=== PATIENT | female | born 1955 | race African-American/Black ===

== ENCOUNTER 2019-01-05 15:02 | Inpatient (IN) | payer OTHER ==
[~2019-01-05] VITALS: Ht 170.2 cm; Wt 71.2 kg
[~2019-01-05 15:02] MED LIST: COREG25 MG PO; COZAAR 25 MG TA25 M1 PO; SENNA-DOCUSATE1 EAC1 PO; VERAPAMIL E.R240 M1 PO
[2019-01-05 15:03] VITALS: BP 170/104
[2019-01-05 18:05] LABS: HEMOGLOBIN 6.5 gm/dL (12.0-15.0); MCH 24.6 pg (26.0-34.0); MCHC 31.2 g/dL (28.0-37.0); PLATELET COUNT 203 thou/uL (150-400); RBC 2.66 mil/uL (4.20-5.00); WBC 6.9 thou/uL (4.0-11.0)
[2019-01-05 18:28] LABS: CALCIUM 9.3 mg/dL (8.5-10.1); CREATININE 11.5 mg/dL (0.6-1.0)
[2019-01-05 18:32] LABS: ABSOLUTE NEUTROPHILS 4.1 thou/uL (1.4-8.2)
[2019-01-05 18:33] LABS: ANISOCYTOSIS 1+; SCHISTOCYTES OCCASIONAL; TARGET CELLS OCCASIONAL
[2019-01-05 18:34] LABS: ALBUMIN 3.3 g/dL (3.4-5.0); MAGNESIUM 1.7 mg/dL (1.8-2.4); TOTAL BILIRUBIN 0.5 mg/dL (<0.1-1.0); TOTAL PROTEIN 7.5 g/dL (6.4-8.2)
[2019-01-05 18:35] LABS: BE(vivo) 0.1 mmol/L (-2 to +3); HCO3 23.5 mmol/L (22.0-26.0); PCO2 VENOUS 32.9 mmHg (41.0-51.0); PO2 VENOUS 65.1 mmHg (35.0-45.0)
[2019-01-05 22:27] VITALS: BP 126/75
[2019-01-05 23:29] VITALS: BP 179/109
[2019-01-06] VITALS (60 sets, daily range): BP systolic 137–194; BP diastolic 74–116
--- NOTE | 2019-01-06 | NUR ---
ADMIT: Pt here at 2350. Restless, sedated, not cooperative with cares, in soft wrist bilateral and right ankle soft restraint.
--- NOTE | 2019-01-06 00:27 | NUR ---
RESTRAINTS decreased to SWB and LUIS ALBERTO after pt settled in bed at 2355. Pt calm now, sedated still, monitor sinus tachycardia with rate 107-115, room air O2 sat 93%. Spoke with David Haney NP. Orders recieved. Ok given to call nephrology service in a.m. with consult. Will hold on blood transfusion till talk with renal in a.m.
[2019-01-06 01:18] LABS: CALCIUM 9.1 mg/dL (8.5-10.1); CREATININE 11.9 mg/dL (0.6-1.0); MAGNESIUM 1.8 mg/dL (1.8-2.4)
[2019-01-06] MEDS ORDERED: VIMPAT100 MG PO (02:51)
[2019-01-06] MEDS ORDERED: LIPITOR40 MG PO (02:51)
[2019-01-06] MEDS ORDERED: TRAMADOL 50 MG50 MG PO ×2 (02:54→02:55)
[2019-01-06] MEDS ORDERED: TYLENOL325 MG PO (02:56)
[2019-01-06] MEDS ORDERED: BRIVIACT100 MG PO (05:43)
[2019-01-06] MEDS ORDERED: CARVEDILOL3.125 MG PO (05:43)
[2019-01-06 06:09] LABS: % SATURATION 9 % (20-39); IRON 23 ug/dL (50-170); TIBC 258 ug/dL (250-450)
--- NOTE | 2019-01-06 06:11 | NUR ---
Spoke with Dr. Mtz regarding renal consult. He will see pt this a.m. Pt remains sedated, but arouses to tactile stimuli. Monitor sinus rhythm, sinus tach, rates 90's to 107. Remains in soft wrist restraints bilaterally. On 2 L nasal canula, sat 100%.
[2019-01-06 06:26] LABS: FOLIC ACID 6.8 ng/mL (8.6-58.9)
--- NOTE | 2019-01-06 09:59 | NUR ---
VASCULAR ACCESS ATTEMPTED PIV ON R ARM VESSELS VERY SMALL MANY NONCOMPRESSIBLE PIV UNSUCCESSFUL. MIDLINE ORDERED BUT PT IS DIALYSIS PT SO MIDLINE IS CONTRAINDICATED. DISCUSSED WITH ALICIA LINARES TO NOTIFY DR CHACON TO RECOMMEND EITHER TICC OR IJ BY IR. PT IS UNCOOPERATIVE AND DYSPNIC AT PRESENT SO IJ BY VASCULAR ACCESS TEAM IS UNSAFE.
--- NOTE | 2019-01-06 16:39 | NUR ---
Met with patient who was groggy. She admits from [facility] for [facility]. [facility] per [facility] nursing facility. She left AMA and return to [facility] with AMS. Nursing facility reports she left AMA and spouse brought her back to facility facility unaware of her dc/return. She returned with no orders. Patient is fairly new hemodyalsis patient. Spouse reports she dializes at a facility [facility]. Sp with [facility], patient does not dialize at those clinics. Sp with [facility] who report not a patient at their clinic, possibly private clinic. Sp with spouse cont plan to return to [facility], she admitted to facility in for skilled care. Cont plan for skilled at in.
--- NOTE | 2019-01-06 17:00 | NUR ---
[facility] SPOKE WITH CARMELO IN ADM SHE RECEIVED UPDATE.
--- NOTE | 2019-01-06 19:15 | NUR ---
DROWSY/LETHARGIC. AIRWAY REMAINED PATENT. DIALYSIS REMOVED 2,500CC. RESTRAINTS REMOVED AFTER DIALYSIS. PO BP MED HELD SINCE PT TOO SLEEPY TO TAKE PO. NOW PT AWAKE, ALERT TO PERSON, PULLING LEADS OFF.
[2019-01-07] VITALS (21 sets, daily range): BP systolic 134–226; BP diastolic 72–96
[2019-01-07 06:12] LABS: HEMOGLOBIN 6.6 gm/dL (12.0-15.0); RDW 16.8 % (10.5-14.5)
[2019-01-07 06:16] LABS: HEMATOCRIT 21.1 % (37.0-47.0); MCHC 31.2 g/dL (28.0-37.0); MCV 80.3 fL (80.0-100.0); RBC 2.63 mil/uL (4.20-5.00); WBC 4.9 thou/uL (4.0-11.0)
[2019-01-07 06:37] LABS: ALBUMIN 2.8 g/dL (3.4-5.0); CALCIUM 8.8 mg/dL (8.5-10.1); PHOSPHORUS 3.9 mg/dL (2.5-4.9); POTASSIUM 3.9 mmol/L (3.5-5.1)
[2019-01-07 06:38] LABS: CREATININE 6.2 mg/dL (0.6-1.0)
--- NOTE | 2019-01-07 08:03 | NUR ---
PATIENT ALERT AND ORIENTED TO SELF AND SITUATION, NO COMPLAINTS OF PAIN. ON ROOM AIR. LEFT UPPER ARM DIALYSIS FISTULA INTACT. BATH COMPLETED INDEPENDENLTY, PATIENT UP WITH STANDBY ASSISTANCE, VERBALIZED UNDERSTANDING OF CALLING BEFORE GETTING OUT OF BED. PATIENT INTERMITTENTLY PULLED OF TELEMETRY STICKERS AND BLOOD PRESSURE CUFF, EDUCATED ON THE IMPORTANCE TO CLOSELY MONITOR HER. SPOKE TO DAUGHTER AND GAVE UPDATE. PATIENT RESTLESS OVER NIGHT WITH LITTLE SLEEP. NO SIGNS OF ACUTE DISTRESS NOTED AT THIS TIME. WILL CONTINUE TO MONITOR.
--- NOTE | 2019-01-07 09:17 | HC ---
[facility] [place] [address] CONSULTATION Name: MICA CASTELLANO V Room #: 247-P ADM IN M.R.#: [id number] Admission: 01/05/19 Attend Phys: Neptali Martin Discharge: Date of : 53 Report #: [id number] THIS REPORT FOR: //name// CC: [facility] physician/PCP Dillon Julio REASON FOR PRESENTATION: Missing dialysis, abnormal mental status. HISTORY OF PRESENT ILLNESS: This is obtained from the medical records, as the patient is not able to provide me with a history due to her mental status changes. She is a 63-year-old who has been having some issues with acute mental status changes in her [facility]. She was admitted to [facility] for few days and was discharged back to her facility; however, her facility refused to take her back because of her aggressive behavior. I have taken care of this patient back in September when she presented with peritonitis. She was treated accordingly; however, she ended up having her PD catheter removed because of noncompliance. She follows with Dr. Matson in [facility]. She did not dialyze since last Saturday. She was admitted to be evaluated, and I am consulted to manage her end-stage renal disease. When I talked with her dialysis unit back in September of this year, they have informed me that the patient has been extremely noncompliant with her medication. PAST MEDICAL HISTORY: 1. Hypertension. 2. End-stage renal disease. 3. Peritonitis. 4. Kidney cysts. PAST SURGICAL HISTORY: 1. PD catheter removal. 2. Left AV graft. MEDICATIONS: 1. Carvedilol. 2. Verapamil. 3. Losartan. 4. Atorvastatin. FAMILY HISTORY: Unobtainable given the patient's mental status. REVIEW OF SYSTEMS: Completely unobtainable as the patient is currently having mental status issues. PHYSICAL EXAMINATION: VITAL SIGNS: Blood pressure is 170/92. HEAD AND NECK: No jugular venous distention. CHEST: No crackles. [facility] [address] [place] [address] CONSULTATION Name: MICA CASTELLANO V Room #: [address] [place] [address] IN ..#: [id number] Admission: 01/05/19 Attend Phys: Neptali Martin Discharge: Date of : 53 Report #: [id number] CARDIOVASCULAR: No rub. ABDOMEN: Soft, nontender. EXTREMITIES: Lower extremities, no edema. Upper extremities, there is a functioning left AV graft. LABORATORY VALUES: Reviewed. Hemoglobin is 6.5. Sodium is 133, BUN is 38, creatinine is 11.9. IMPRESSION AND PLAN: 1. End-stage renal disease. 2. Noncompliance. 3. Combative behavior. 4. Remote history of peritonitis. 5. Hypertension. 6. We will arrange for the patient to have hemodialysis. 8. Anemia workup. 9. Resume blood pressure medication. <ELECTRONICALLY SIGNED> By: Brenda Bravo MD 01/07/19 0917 [id number] Brenda Bravo MD /paramjit
--- NOTE | 2019-01-07 15:02 | NUR ---
OK FOR DC TODAY PER NEPHROLOGY AND HOSPITALIST. CARMELO AT [facility] CONFIRMS ABLE TO ACCEPT BACK TO SKILLED REHAB TODAY AND W/C VAN [employer] TIME [id number]. RN PROVIDED # FOR REPORT AND UPDATED. RN WILL NOTIFY PT'S DTR BY PHONE AND PT'S SISTER IN ROOM WITH PT AND AGREEABLE TO DC TODAY.
--- NOTE | 2019-01-07 15:05 | NUR ---
PT DISCHARGING TODAY BACK TO [facility] FAXED DC ORDERS/SUMMARY TO FACILITY SPOKE WITH CARMELO IN ADM SHE RECEIVED DC ORDERS AND ARRANGED TRANSPORT BY [facility] FOR [phone]. TRIED TO NOTIFY PT'S ([facility]) BUT HIS VOICEMAIL IS FULL SO NOTIFIED PT'S DTR AND LEFT MSG WITH TIME OF TRANSPORT. NOTIFIED UNIT AND CHART COPY PER US RN TO CALL REPORT TO [phone] AND ASK FOR SANDRA.
--- NOTE | 2019-01-07 15:57 | NUR ---
REPORT RECEIVED AND CARE ASSUMED THIS AM, AWAKE AND ALERT, ORIENTED X3. PLEASANT AND COOPERATIVE. DIALYSIS COMPLETED TODAY THROUGH [facility]. SR ON MONITOR, ONE UNIT OF PRBCS GIVEN BY DIALYSIS NURSE. PATIENT TO BE DISCHARGED BACK TO [facility]. REPORT GIVEN TO MILAGROS RAMOS. WAITING FOR WHEELCHAIR VAN TRANSPORT.
--- NOTE | 2019-01-07 16:17 | HC ---
[facility] [address] [address] CONSULTATION Name: MICA CASTELLANO V Room #: [facility] ADM IN M.R.#: [id number] Admission: 01/05/19 Attend Phys: Neptali Martin Discharge: Date of : 53 Report #: [id number] THIS REPORT FOR: //name// CC: [facility] physician/PCP Neptali Martin DATE OF SERVICE: 01/06/2019 PSYCHIATRIC CONSULTATION CONSULTATION: Primary team attending, Dr. Neptali Martin, consulting ice cream truck driver, Brenda Bravo. Psychiatrist, Wayne Romero DO REASON FOR CONSULTATION: Delirium due to multiple etiologies and agitation. HISTORY OF PRESENT ILLNESS: This is a 63-year-old black female admitted through the Emergency Department yesterday. The patient has a number of medical problems. She is an established patient on hemodialysis. She also had been residing in a nursing facility, was sent out to [facility]. She had a respiratory problem. She was noncooperative. She was sent back to her house briefly and allegedly sent back to our hospital, this was the story, I got from her sister who is present this morning. From the ER records, she had had aggressive behavior, altered mental status. She resides at [facility]. Per daughter, her caretakers there called an ambulance Saturday night because the patient had hypertension, dyspnea, transported to [facility]. She was admitted there Saturday morning last night or this morning, the providers were tried to assess her and she grew combative. She was released from [facility] earlier today. [facility] would not take her back because she has been increasingly aggressive and altered behavior. The patient is on hemodialysis as far as her daughters know, she last received a full treatment 5 days prior to admission, some sort of half treatment 3 days ago. Per caretakers from [facility], the patient deeply dislikes dialysis because caretakers have trouble accessing the fistula without causing her pain. Her daughter reported the patient was seen at [facility] 6 weeks ago for an infection and had multiple seizures the day after being admitted. She was put on seizure medication. Daughters and caretakers report, the patient is typically sassy. Apparently, it is believed she has delirium due to buildup of toxins. No power of district attorney on file for the patient. Her ice cream truck driver is Dr. Matson at [facility]. PAST SURGICAL HISTORY: Tubal ligation 23 years ago, fistula for dialysis, hysterectomy for fibroids. MEDICAL HISTORY: Hypertension. PSYCHIATRIC HISTORY: Extensive street drug use prior to 20 [address] ago[address] [address] CONSULTATION Name: MICA CASTELLANO V Room #: [facility] IN M.R.#: [id number] Admission: 01/05/19 Attend Phys: Neptali Martin Discharge: Date of : 53 Report #: [id number] HOME MEDICATIONS: Coreg 25 mg p.o. b.i.d. with meals, verapamil extended release 80 mg p.o. t.i.d., losartan 50 mg p.o. daily, sennosides-docusate 2 tablets p.o. daily. ALLERGIES: PENICILLIN. SOCIAL HISTORY: No recent tobacco. REVIEW OF SYSTEMS: Not obtainable. LABORATORY DATA: From the Emergency Room, venous blood gas was done and showed the pO2 of 65, pCO2 of 32, carboxyhemoglobin 1.9. Other laboratories, sodium 133, potassium 4.0, chloride 92, bicarbonate 24, anion gap 17, BUN 37, creatinine 11.5, estimated GFR 4, glucose 97, calcium 9.3, phosphorus 5.0, magnesium 1.7, total bilirubin 0.5, AST 20, ALT 12, alkaline phosphatase 58. Albumin is 3.3. White count 6.9, H and H would be 6.5 and 21.0, platelet count 203. Urinalysis was canceled. Additional laboratories from today 01/06/2019, iron 23, TIBC 258, percent sat 9 and unsaturated IBC 235. Folate is 6.8. B12 of 531. MRSA PCR screen was negative. PHYSICAL EXAMINATION: VITAL SIGNS: Today, serial blood pressures range from 159/89-140/83 most recently. Additional vital signs most recently to my consultation would be pulse 102, respirations 12, BP 177/102, O2 sat 100%. The patient, I believe, is not taking p.o. nourishment at this time, but I hope that will change. Actually when they see Dr. Martin's diet order, it is n.p.o. except meds and sips of liquids. CURRENT MEDICATIONS IN THE HOSPITAL: Senna-S 2 tabs p.o. daily. Lacosamide, which is Vimpat 100 mg per 50 mL b.i.d. IV piggyback. Coreg 3.125 mg b.i.d. with meals. I added Haldol 0.5 mg IV q. 8 hours for delirium, lorazepam has been discontinued, hydralazine 10 mg q.4 hours IV p.r.n. push. Haloperidol 2.5 mg q hours p.r.n. push, Alteplase 2 mg as directed. The fluids were discontinued, mostly otherwise that was discontinued medications. Limited history available, the patient is a full code, likely maximum high school education level, unknown trauma history and unknown drug use history. PHYSICAL EXAMINATION: This is a well-developed, recumbent in bed in the Intensive Care Unit. MENTAL STATUS EXAMINATION: This is a well-developed, disheveled black female with braided hair. Attention limited. Concentration limited. She was able to squeeze my right hand with directions with prompting stick out her tongue. Thought process linear and limited. Thought content, unable to assess. [facility] [address] [place] [address] CONSULTATION Name: MICA CASTELLANO V Room #: 247-P [facility] IN M.R.#: [id number] Admission: 01/05/19 Attend Phys: Neptali Martin Discharge: Date of : 53 Report #: [id number] Psychomotor retardation. No psychomotor agitation. Denied suicidal intent or plan. Some helplessness, some hopelessness. Denied homicidal behavior. The patient was removed from restraints when I saw her and no suicidal behavior, but she was not able to confirm whether she had suicidal ideations. Memory impaired. Insight limited. Judgment limited. Fund of knowledge well below average. FORMULATION: A 63-year-old black female brought for altered mental status, need for hemodialysis. DIAGNOSES: Delirium due to general medical condition, namely acute on chronic renal failure, fluid overload, electrolyte imbalance. PLAN: At this time, I think the benefits outweigh the risks of Haldol 0.5 mg IV q. 8 hours scheduled with Haldol 2.5-5 mg p.r.n. IV the agiataion , the IV doses are considered twice as potent as PO or IM haloperidol. I would recommend not using Geodon with her, not using benzodiazepines including lorazepam. Continue to treat underlying general medical condition, hope to minimize her strength to help the patient out of bed and then in a chair tomorrow. I would agree that decisions regarding refusing dialysis and whether to go on comfort care should not be entertained until the delirium is passed and the patient can have a discussion with her family and doctors. Time spent on interview, review of records, coordination of care for this patient is approximately 60 minutes. <ELECTRONICALLY SIGNED> By: Wayne Romero DO 01/07/19 1617 [id number] Wayne Romero DO /nt
--- NOTE | 2019-01-07 17:17 | NUR ---
ATTEMPTED TO GIVE FLU VACCINE PRIOR TO DISCHARGE. REQUESTED FROM PHARMACY BUT PATIENT TRANSPORTATION ARRIVED AND PATIENT DISCHARGED BEFORE GETTING FLU VACCINE
[2019-01-08 08:07] LABS: HEPATITIS B SURFACE AG Negative (Negative)
== END 2019-01-07 17:05 | DRG 70 ==
LOC: ER 15:02 → ICU 22:03 → EROBS 22:03 → ICU 23:14
PROVIDERS: Hospitalist; Nurse Practitioner Acute Care; Physician Assistant; ADMIT Hospitalist
PROC: 30233N1 Transfusion of Nonautologous Red Blood Cells into Peripheral Vein, Percutaneous Approach (ICD-10-PCS; principal; 2019-01-07)
PROC: 5A1D70Z Performance of Urinary Filtration, Intermittent, Less than 6 Hours Per Day (ICD-10-PCS; principal; 2019-01-07)
DX: G93.41 Metabolic encephalopathy (principal); N18.6 End stage renal disease; J18.9 Pneumonia, unspecified organism; I12.0 Hypertensive chronic kidney disease with stage 5 chronic kidney disease or end stage renal disease; N17.9 Acute kidney failure, unspecified; G93.40 Encephalopathy, unspecified; D64.9 Anemia, unspecified; I16.0 Hypertensive urgency; E78.5 Hyperlipidemia, unspecified; G40.909 Epilepsy, unspecified, not intractable, without status epilepticus; E87.8 Other disorders of electrolyte and fluid balance, not elsewhere classified; F43.0 Acute stress reaction; Z90.710 Acquired absence of both cervix and uterus; Z99.2 Dependence on renal dialysis; Z91.14 Patient's other noncompliance with medication regimen; Z79.899 Other long term (current) drug therapy; Z88.0 Allergy status to penicillin
CPT/HCPCS: 10078; 32100; 85076